=== PATIENT | male | born 1995 | race Hispanic/Latino ===

== ENCOUNTER 2018-02-09 20:16 | Emergency (ER) | payer OTHER ==
[2018-02-09] MEDS: CEPHALEXIN 500 MG CAP PO (23:42)
[2018-02-09] MEDS: diphenhydrAMINE 25 MG CAP PO (23:42)
== END 2018-02-09 23:51 | disposition home or self-care (01) ==
LOC: M ED 20:16
DX: S60.561A Insect bite (nonvenomous) of right hand, initial encounter (principal); W57.XXXA Bitten or stung by nonvenomous insect and other nonvenomous arthropods, initial encounter; Y92.89 Other specified places as the place of occurrence of the external cause
CPT/HCPCS: 99283